=== PATIENT | female | born 1990 ===

== ENCOUNTER 2017-08-15 21:09 | Emergency (ER) | payer SELFPAY ==
--- NOTE | 2017-08-15 21:27 | PDOC ---
History of Present Illness - History of Present Illness Initial Comments: 08/15/17 21:40 The patient is a 26 year old female, with no significant past medical history, who presents to the emergency department with left 4th finger hand laceration s /p injury. Patient states that she was grabbing a glass from the refrigerator when it broke and it cut her finger. Patient is not sure if any glass became stuck in her finger. Adult PAST MEDICAL HISTORY: no significant history PAST SURGICAL HISTORY: no significant history FAMILY HISTORY: no pertinent history MEDICATIONS: reviewed ALLERGIES: As per nursing notes ROS General: No fevers or chills, no weakness, no weight loss HEENT: No change in vision. No sore throat, No ear pain Musculoskeletal: No joint or muscle pain or swelling Neurologic: No headache, vertigo, dizziness or loss of consciousness Skin: + 4th finger laceration to left hand. No rashes or easy bruising Allergic: no skin or latex allergy PE GENERAL: The patient is awake, alert, and fully oriented, in no acute distress. HEAD: Normal with no signs of trauma. EYES: Pupils equal, round and reactive to light, extraocular movements intact, sclera anicteric, conjunctiva clear. EXTREMITIES: Normal range of motion, no edema. NEUROLOGICAL: Normal speech, normal gait. PSYCH: Normal mood, normal affect. SKIN: 1-1.5 cm laceration of medial aspect of proximal phalanx with associated bruising and swelling. No palpable foreign body. Neurovascular distal is intact. <Samia Coughlin - Last Filed: 08/15/17 21:40> - General History Source: Patient Exam Limitations: No Limitations - History of Present Illness Initial Comments: 08/15/17 23:07 A portion of this note was documented by scribe services under my direction. I have reviewed the details of the note, within reason, and agree with the documentation. The case summary and management plan written by me. Procedure note laceration repair laceration anesthetized with approximately 2 mL lidocaine no epinephrine Laceration was explored there is no visible tendon injury Laceration cleaned with saline and peroxide Laceration closed with a total of 4 sutures of 5-0 Ethilon Bacitracin and sterile dressing applied patient tolerated well X-ray 3 laceration repair was negative for any foreign body or fractures Assessment and plan: This is 26-year-old female who sustained a laceration to her left ring finger when he was cut with a drinking glass. Patient had x-ray was negative for foreign body and laceration was closed with 4 sutures patient discharged home will follow-up with her doctor for suture removal or return to the ER 08/15/17 23:11 <Funmilayo Santana I - Last Filed: 08/15/17 23:11> - General Chief Complaint: Laceration Stated Complaint: LH 4TH FINGER LAC Time Seen by Provider: 08/15/17 21:20 Past History <Samia Coughlin - Last Filed: 08/15/17 21:40> - Past Medical History COPD: No Other medical history: DENIES - Immunization History Immunization Up to Date: Yes - Suicide/Smoking/Psychosocial Hx Smoking History: Never smoked <Funmilayo Santana I - Last Filed: 08/15/17 23:11> - Past Medical History Allergies/Adverse Reactions: Allergies Allergy/AdvReac Type Severity Reaction Status Date / Time No Known Allergies Allergy Unverified 08/15/17 21:11 Home Medications: Ambulatory Orders NK [No Known Home Medication] 08/15/17 Review of Systems - Review of Systems Comments:: 08/15/17 21:44 See HPI <Samia Coughlin - Last Filed: 08/15/17 21:40> *Physical Exam - Vital Signs Last Vital Signs Temp Pulse Resp BP Pulse Ox 98.2 F 72 16 116/59 100 08/15/17 21:12 08/15/17 21:12 08/15/17 21:12 08/15/17 21:12 08/15/17 21:12 - Physical Exam Comments: 08/15/17 21:45 See HPI. <Samia Coughlin - Last Filed: 08/15/17 21:40> - Vital Signs Last Vital Signs Temp Pulse Resp BP Pulse Ox 98.2 F 72 16 116/59 100 08/15/17 21:12 08/15/17 21:12 08/15/17 21:12 08/15/17 21:12 08/15/17 21:12 <Funmilayo Santana I - Last Filed: 08/15/17 23:11> *DC/Admit/Observation/Transfer - Attestations Scribe Attestion: 08/15/17 21:44 Documentation prepared by Samia Coughlin, acting as medical billing coder for Funmilayo Santana MD. <Samia Coughlin - Last Filed: 08/15/17 21:40> <Funmilayo Santana I - Last Filed: 08/15/17 23:11> Diagnosis at time of Disposition: Finger laceration Qualifiers: Encounter type: initial encounter Finger: ring finger Damage to nail status: without damage Foreign body presence: without foreign body Laterality: left Qualified Code(s): S61.215A - Laceration without foreign body of left ring finger without damage to nail, initial encounter - Discharge Dispostion Disposition: HOME Condition at time of disposition: Stable - Patient Instructions Printed Discharge Instructions: DI for Laceration Repair Additional Instructions: Keep the laceration dry for the next 72 hours Suture removal in 7 days either by your doctor or you can return here Clean the laceration once a day with some peroxide and reapply bacitracin and a clean Band-Aid for the next 3 days after that you can leave it open in less you' re in an area that will get dirt into it and then protected with a clean Band- Aid. Return to the emergency department immediately with ANY new, persistent or worsening symptoms. Continue any medications as previously prescribed by your physician. You should follow up with your primary doctor as soon as possible regarding today's emergency department visit. . Please make sure your doctor reviews the results of your emergency evaluation. Thank you for coming to the Emergency Department today for your care. It was a pleasure to see you today. Please note that your evaluation is INCOMPLETE until you follow-up with your doctor.
[2017-08-15 21:34] VITALS: BP 116/59; PULSE 72; TEMP 98.2; BMI 20.4
[2017-08-15] MEDS ORDERED: ACETAMINOPHEN 500 MG TABLET (FP) PO ONE (21:34)
[2017-08-15] MEDS ORDERED: ACETAMINOPHEN 500 MG TABLET (FP) ONE (21:42)
== END 2017-08-15 23:15 | disposition home or self-care (01) ==
LOC: FER 21:09
PROC: 0HQGXZZ Repair Left Hand Skin, External Approach (ICD-10-PCS; principal; 2017-08-15)
DX: S61.215A Laceration without foreign body of left ring finger without damage to nail, initial encounter (principal); W25.XXXA Contact with sharp glass, initial encounter; Y93.89 Activity, other specified; Y92.9 Unspecified place or not applicable
CPT/HCPCS: 73140-TC-LT; 84703; 99281-25